=== PATIENT | female | born 1970 | race Caucasian/White ===

== ENCOUNTER 2021-03-30 13:45 | Emergency (ER) | payer OTHER ==
[2021-03-30 15:31] LABS: RED BLOOD COUNT 4.52 M/UL (4.00-5.10); WHITE BLOOD COUNT 4.7 K/UL (4.5-11.0)
[2021-03-30 16:00] LABS: BUN/CREATININE RATIO 18 (0-10)
[2021-03-31] MEDS ORDERED: MAGNESIUM OXID400 M1 PO (11:03)
[2021-03-31] MEDS ORDERED: BACLOFEN10 MG PO (11:03)
[2021-03-31] MEDS ORDERED: METOPROLOL SUCC50 MG PO (11:04)
[2021-03-31] MEDS ORDERED: BUPROPION XL150 MG PO (11:04)
[2021-03-31] MEDS ORDERED: PROZAC 20 MG CA20 MG PO (11:04)
[2021-03-31] MEDS ORDERED: OMEPRAZOLE40 MG PO (11:05)
[2021-03-31] MEDS ORDERED: DOXEPIN HCL10 MG PO (11:05)
[2021-03-31] MEDS ORDERED: PROMETHAZINE HC25 M1 PO (11:05)
[2021-03-31] MEDS ORDERED: UBRELVY100 MG PO (11:06)
[2021-03-31] MEDS ORDERED: QULIPTA30 MG PO (11:07)
== END 2021-04-02 17:18 | disposition home or self-care (01) ==
LOC: ER1 13:45
PROVIDERS: Emergency Medicine
DX: U07.1 COVID-19 (principal); F23 Brief psychotic disorder; I10 Essential (primary) hypertension
CPT/HCPCS: 31500; 70450; 80053; 80307; 82550; 82553; 83874; 84484; 84703; 85025; 99285; U0002